=== PATIENT | female | born 1955 | race Caucasian/White ===

== ENCOUNTER 2024-05-04 10:24 | Outpatient (AMB) | payer MEDICARE, SELFPAY ==
[2024-05-04 10:31] VITALS: PULSE 81; O2SAT 95; BMI 30.8
--- NOTE | 2024-05-04 10:31 | MHC.OFFVIS ---
Vital Signs 05/04/24 10:31 Height 5 ft 3 in Weight 174 lb BMI 30.8 Pulse 81 Pulse Source Pulse Oximeter Pulse Oximetry (%) 95 Oxygen Delivery Method Room Air Intake Visit Reasons: Sleep apnea Senior Health Consultant Required: No Allergies lisinopril Adverse Reaction (Severe, Verified 05/04/24 10:33) Cough HPI Comments Details: Patient is here for pulmonary evaluation. The patient is a 69 year woman with known history of obstructive sleep apnea. The patient also has a history cardiovascular disease with hypertension and hyperlipidemia. Back in 2014 she was having significant snoring and apneic episodes ever documented by her family. She had an elevated [place] score. The patient did have a sleep study back at that time back in 2014 which demonstrated an AHI of 11 nodes an hour. In addition to that she had significant hypoxia down to 61% spending more than 10 minutes below 88%. Patient started on CPAP at that time. CPAP therapy has been affecting beneficial for many years. It did improve her daytime drowsiness. Overall she has been doing well with therapy. She does use a fullface mask. She gets supplies from [employer]. Her machine is no longer working correctly. Is making noise. It is definitely older than 5 years. She did bring it in and I did evaluated. The average pressure varies between 12-15 cm. The noise is coming from the motor and is therefore not working. Based on cardiovascular risk factors and history of hypertensive urgency the patient needs to have replacement machine RAIMUNDO. On exam she does have a mid systolic murmur about a 1-2/6 best heard at the right sternal border. She did have an echocardiogram at [facility] back in the winter of 2022. We did look at it together. Seems like she has some calcifications of the aortic valve with difficult to visualize the valve in addition to that some mild trace valvular disease . But likely is more of an aortic valve murmur. Will go ahead and start her on a new CPAP based on the fact that she had significant hypoxia during her sleep study previously will go ahead and order an overnight oximetry once she has tablets with the new machine. If the patient has evidence of any persistent hypoxia she will need another titration study. [facility] Medical History (Updated 05/04/24 @ 22:38 by Edinson You MD) Murmur WHIT (obstructive sleep apnea) Social History (Updated 05/04/24 @ 10:34 by RISSA Kaufman) Patient Tobacco Use Status: Never used Tobacco Review of Systems Const Reports snoring Eyes Reports no additional complaints ENT Denies nasal congestion Card Denies chest pain and Denies dyspnea on exertion Resp Denies cough, Denies dyspnea on exertion, Reports snoring and Denies wheezing GI Reports no additional complaints Musc Reports no additional complaints Skin/Breast Denies rash Delfino/Lymph Denies lymphadenopathy Aller/Immun Denies wheezing Physical Exam Vital Signs: Last Vital Signs Pulse 81 05/04/24 10:31 Pulse Ox 95 05/04/24 10:31 Oxygen Delivery Method Room Air 05/04/24 10:31 BMI result Body Mass Index 30.8 Const General: comfortable HEENT Head: Yes normocephalic Neck Neck: Yes supple Chest Chest palpation & inspection: normal inspection of the chest Resp Effort & Inspection: normal respiratory effort Auscultation: clear to auscultation bilaterally Cardio Heart sounds: S1 normal heart sound present, S2 normal heart sound present and Murmur heart sound present systolic mid, II/, at the base and at the right sternal border GI Palpation (GI): Soft to palpation Skin General skin exam: no rashes or lesions noted Extrem General: Yes no clubbing, cyanosis or edema Assessment & Plan Assessment & Plan (1) WHIT (obstructive sleep apnea): Comment: mild to moderate with significant hypoxia, cardiovascular risk factors Code(s): G47.33 - Obstructive sleep apnea (adult) (pediatric) Category: Medical (2) Murmur: Comment: ECHO in 2022 with minimal valvular disease, although, Aortic valve not well visualized Code(s): R01.1 - Cardiac murmur, unspecified Category: Medical Plan Her current nebulizer is broken beyond reoair. Needs a replacement APAP at this time Overnight oximetry once set up with her new APAP consider repeating ECHO in the future F/U 3-4 months Coding Level of Care Code New Pt Level 4 (83810) Diagnoses WHIT (obstructive sleep apnea) G47.33 Murmur R01.1 Time Spent (min) 40
== END 2024-05-04 11:07 | disposition home or self-care (01) ==
PROVIDERS: PCP Internal Medicine; Visit Provider Hospitalist
DX: G47.33 Obstructive sleep apnea (adult) (pediatric) (principal); R01.1 Cardiac murmur, unspecified
CPT/HCPCS: 99204

== ENCOUNTER → 2024-05-04 10:24 | Outpatient (BNVA) | payer MEDICARE, SELFPAY | PROVIDERS: PCP Internal Medicine; Visit Provider Hospitalist | DX: G47.33 Obstructive sleep apnea (adult) (pediatric) (principal); R01.1 Cardiac murmur, unspecified | CPT/HCPCS: 99202 ==

== ENCOUNTER 2024-08-10 10:10 | Outpatient (AMB) | payer MEDICARE, SELFPAY ==
--- NOTE | 2024-08-10 10:16 | A.OFFVIS_ITS ---
Vital Signs 08/10/24 10:17 Height 5 ft 3 in Weight 172 lb BMI 30.5 BP 124/70 Blood Pressure Location Lt brachial Position Sitting Pulse 69 Pulse Source Pulse Oximeter Pulse Oximetry (%) 98 Oxygen Delivery Method Room Air Intake Visit Reasons: Sleep apnea Director Of Convention Services Required: No Allergies lisinopril Adverse Reaction (Severe, Verified 08/10/24 10:19) Cough HPI Comments Details: The patient is a 69 year woman with known history of obstructive sleep apnea. The patient also has a history cardiovascular disease with hypertension and hyperlipidemia. Back in 2014 she was having significant snoring and apneic episodes ever documented by her family. She had an elevated [place] score. The patient did have a sleep study back at that time back in 2014 which demonstrated an AHI of 11 nodes an hour. In addition to that she had significant hypoxia down to 61% spending more than 10 minutes below 88%. Patient started on CPAP at that time. CPAP therapy has been affecting beneficial for many years. It did improve her daytime drowsiness. Overall she has been doing well with therapy. She does use a fullface mask. She gets supplies from [employer]. Her machine is no longer working correctly. Is making noise. It is definitely older than 5 years. She did bring it in and I did evaluated. The average pressure varies between 12-15 cm. The noise is coming from the motor and is therefore not working. Based on cardiovascular risk factors and history of hypertensive urgency the patient needs to have replacement machine RAIMUNDO. On exam she does have a mid systolic murmur about a 1-2/6 best heard at the right sternal border. She did have an echocardiogram at [facility] back in the winter of 2022. We did look at it together. Seems like she has some calcifications of the aortic valve with difficult to visualize the valve in addition to that some mild trace valvular disease . But likely is more of an aortic valve murmur. Will go ahead and start her on a new CPAP based on the fact that she had significant hypoxia during her sleep study previously will go ahead and order an overnight oximetry once she has tablets with the new machine. If the patient has evidence of any persistent hypoxia she will need another titration study. 08/10/2024 the patient is here for pulmonary follow-up visit. Overall the patient has been doing well. She did get her placement APAP. She has not AirSense 11. She did bring it in. She is tolerating it well she is using more than 4 hours a night. The CPAP therapy has been affecting beneficial. the only issue is that she is complaining of a dry mouth and also that the water is completely done prior to her finishing completing her night sleep. The patient did been was able to downloaded. Her AHI is down to 0.8 which is reassuring. Still though her average pressure around 17. this is closely her maximum pressure set up the machine currently set APAP 6 to 18. will go ahead and adjust the PAP therapy by 2 increasing it to 8-20. She is using a fullface mask. I do believe that she will do better with a F20 medium mask. I will request that from her [employer]. In the meantime her humidity set up at 5 in temperature 84 as she is trying to get more humidity from machine. However, she is that currently the water chamber can not maintain the amount of humidification and is running out prior to her completing her night. Therefore I decrease the humidity from 5-3 and brought down the temperature from 84-82. Will try to continue to work with those numbers to try to get her to the best place. I did change the humidity to automatic at this time. From a respiratory status doing well. Now that she is tolerating therapy will request an overnight oximetry to make sure that her oxygenation is better at this time. If the patient has any issues she will call for an earlier assessment otherwise follow-up in a years time. [facility] Medical History (Updated 08/10/24 @ 20:30 by Edinson You MD) Murmur WHIT (obstructive sleep apnea) Social History (Updated 05/04/24 @ 10:34 by RISSA Kaufman) Patient Tobacco Use Status: Never used Tobacco Review of Systems Const Denies snoring Eyes Reports no additional complaints ENT Reports dry mouth and Denies nasal congestion Card Denies chest pain and Denies dyspnea on exertion Resp Denies cough, Denies dyspnea on exertion, Denies snoring and Denies wheezing GI Reports no additional complaints Musc Reports no additional complaints Skin/Breast Denies rash Delfino/Lymph Denies lymphadenopathy Aller/Immun Denies wheezing Physical Exam Vital Signs: Last Vital Signs Pulse 69 08/10/24 10:17 BP 124/70 08/10/24 10:17 Pulse Ox 98 08/10/24 10:17 Oxygen Delivery Method Room Air 08/10/24 10:17 BMI result Body Mass Index 30.5 Const General: comfortable HEENT Head: Yes normocephalic Neck Neck: Yes supple Chest Chest palpation & inspection: normal inspection of the chest Resp Effort & Inspection: normal respiratory effort Auscultation: clear to auscultation bilaterally Cardio Heart sounds: S1 normal heart sound present, S2 normal heart sound present and Murmur heart sound present systolic mid, II/, at the base and at the right sternal border GI Palpation (GI): Soft to palpation Skin General skin exam: no rashes or lesions noted Extrem General: Yes no clubbing, cyanosis or edema Assessment & Plan Assessment & Plan (1) WHIT (obstructive sleep apnea): Comment: mild to moderate with significant hypoxia, cardiovascular risk factors Code(s): G47.33 - Obstructive sleep apnea (adult) (pediatric) Category: Medical (2) Murmur: Comment: ECHO in 2022 with minimal valvular disease, although, Aortic valve not well visualized Code(s): R01.1 - Cardiac murmur, unspecified Category: Medical Plan continue APAP, adjust to 10-20 with ramp 6, adjusted humidity Overnight oximetry on APAP, RA F/U 8-12 months Orders: Orders Overnight Pulse Oximetry Today G47.34 - Idiopathic sleep related nonobstructive alveolar hypoventilation Coding Level of Care Code Est Pt Level 4 (57104) Diagnoses WHIT (obstructive sleep apnea) G47.33 Murmur R01.1 Time Spent (min) 18
[2024-08-10 10:17] VITALS: BP 124/70; PULSE 69; O2SAT 98; BMI 30.5
== END 2024-08-10 10:59 | disposition home or self-care (01) ==
PROVIDERS: PCP Internal Medicine; Visit Provider Hospitalist
DX: G47.33 Obstructive sleep apnea (adult) (pediatric) (principal); R01.1 Cardiac murmur, unspecified
CPT/HCPCS: 99214

== ENCOUNTER → 2024-08-10 10:10 | Outpatient (BNVA) | payer MEDICARE, SELFPAY | PROVIDERS: PCP Internal Medicine; Visit Provider Hospitalist | DX: G47.33 Obstructive sleep apnea (adult) (pediatric) (principal); G47.34 Idiopathic sleep related nonobstructive alveolar hypoventilation; R01.1 Cardiac murmur, unspecified; Z99.89 Dependence on other enabling machines and devices | CPT/HCPCS: 99212 ==

== ENCOUNTER 2025-08-05 09:54 | Outpatient (AMB) | payer MEDICARE, SELFPAY ==
[2025-08-05 09:56] VITALS: BP 140/68; PULSE 78; O2SAT 96; BMI 30.7
--- NOTE | 2025-08-05 09:56 | A.OFFVIS_ITS ---
Vital Signs 08/05/25 09:56 Height 5 ft 3 in Weight 173 lb 1.006 oz BMI 30.7 BP 140/68 H Blood Pressure Location Lt brachial Position Sitting Pulse 78 Pulse Source Pulse Oximeter Pulse Oximetry (%) 96 Oxygen Delivery Method Room Air Intake Visit Reasons: Sleep apnea Compensation Coordinator Required: No Accompanied by: Spouse Allergies lovastatin Allergy (Intermediate, Verified 08/05/25 10:00) abn lab lisinopril Adverse Reaction (Severe, Verified 08/10/24 10:19) Cough HPI Comments Details: The patient is a 70 year woman with known history of obstructive sleep apnea. The patient also has a history cardiovascular disease with hypertension and hyperlipidemia. Back in 2014 she was having significant snoring and apneic episodes ever documented by her family. She had an elevated [place] score. The patient did have a sleep study back at that time back in 2014 which demonstrated an AHI of 11 nodes an hour. In addition to that she had significant hypoxia down to 61% spending more than 10 minutes below 88%. Patient started on CPAP at that time. CPAP therapy has been affecting beneficial for many years. It did improve her daytime drowsiness. Overall she has been doing well with therapy. She does use a fullface mask. She gets supplies from [employer]. Her m [employer] is no longer working correctly. Is making noise. It is definitely older than 5 years. She did bring it in and I did evaluated. The average pressure varies between 12-15 cm. The noise is coming from the motor and is therefore not working. Based on cardiovascular risk factors and history of hypertensive urgency the patient needs to have replacement machine RAIMUNDO. On exam she does have a mid systolic murmur about a 1-2/6 best heard at the right sternal border. She did have an echocardiogram at [facility] back in the winter of 2022. We did look at it together. Seems like she has some calcifications of the aortic valve with difficult to visualize the valve in addition to that some mild trace valvular disease . But likely is more of an aortic valve murmur. Will go ahead and start her on a new CPAP based on the fact that she had significant hypoxia during her sleep study previously will go ahead and order an overnight oximetry once she has tablets with the new machine. If the patient has evidence of any persistent hypoxia she will need another titration study. 08/10/2024 the patient is here for pulmonary follow-up visit. Overall the patient has been doing well. She did get her placement APAP. She has not AirSense 11. She did bring it in. She is tolerating it well she is using more than 4 hours a night. The CPAP therapy has been affecting beneficial. the only issue is that she is complaining of a dry mouth and also that the water is completely done prior to her finishing completing her night sleep. The patient did been was able to downloaded. Her AHI is down to 0.8 which is reassuring. Still though her average pressure around 17. this is closely her maximum pressure set up the machine currently set APAP 6 to 18. will go ahead and adjust the PAP therapy by 2 increasing it to 8-20. She is using a fullface mask. I do believe that she will do better with a F20 medium mask. I will request that from her [employer]. In the meantime her humidity set up at 5 in temperature 84 as she is trying to get more humidity from machine. However, she is that currently the water chamber can not maintain the amount of humidification and is running out prior to her completing her night. Therefore I decrease the humidity from 5-3 and brought down the temperature from 84-82. Will try to continue to work with those numbers to try to get her to the best place. I did change the humidity to automatic at this time. From a respiratory status doing well. Now that she is tolerating therapy will request an overnight oximetry to make sure that her oxygenation is better at this time. If the patient has any issues she will call for an earlier assessment otherwise follow-up in a years time. 08/05/2025 the patient is here for pulmonary follow-up visit. Overall the patient has been doing well from a CPAP standpoint. She has been using her CPAP every night and the CPAP therapy has been affecting beneficial. Denies any issues with her mask. Although she does have some air leakage at times. She will continue with the current regimen. The patient also complains of cough. She also has some raspiness of the voice and some chest congestion at times. Intermittently in about [id number] severity. She recently did undergo a CT scan of the chest to assess her coronary arteries. 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 She did have a formal CT scan of the chest back in October or September 2024 which I also personally reviewed. There she also had the reticular changes mainly in the subpleural area without any evidence of ground-glass opacities in primarily the left lung more than the right in no real significant bronchiectatic changes there. 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 The patient will also undergo blood work to assess her for the interstitial lung disease in the bronchiectasis. She also needs pulmonary function studies which we also request. For now though she is doing well then she will continue with her current therapy. If she needs any additional inhaler therapy she can always call for further recommendations. [facility] Medical History (Updated 08/07/25 @ 19:31 by Edinson You MD) Bronchiectasis Aortic ectasia Pulmonary fibrosis Murmur WHIT (obstructive sleep apnea) Social History Patient Tobacco Use Status: Never used Tobacco Review of Systems Const Denies snoring Eyes Reports no additional complaints ENT Reports dry mouth and Denies nasal congestion Card Denies chest pain and Denies dyspnea on exertion Resp Reports chest congestion, Reports cough, Denies dyspnea on exertion, Denies snoring and Denies wheezing GI Reports no additional complaints Musc Reports no additional complaints Skin/Breast Denies rash Delfino/Lymph Denies lymphadenopathy Aller/Immun Denies wheezing Physical Exam Vital Signs: Last Vital Signs Pulse 78 08/05/25 09:56 BP 140/68 H 08/05/25 09:56 Pulse Ox 96 08/05/25 09:56 Oxygen Delivery Method Room Air 08/05/25 09:56 BMI result Body Mass Index 30.7 Const General: comfortable HEENT Head: Yes normocephalic Neck Neck: Yes supple Chest Chest palpation & inspection: normal inspection of the chest Resp Effort & Inspection: normal respiratory effort Auscultation: clear to auscultation bilaterally Cardio Heart sounds: S1 normal heart sound present, S2 normal heart sound present and Murmur heart sound present systolic mid, II/, at the base and at the right sternal border GI Palpation (GI): Soft to palpation Skin General skin exam: no rashes or lesions noted Extrem General: Yes no clubbing, cyanosis or edema Results Reviewed Results Reviewed: personally reviewed CT chest [address] coronary arteries 2024 with reticular changes Left hemithorax and some bronchiectasis Assessment & Plan Assessment & Plan (1) WHIT (obstructive sleep apnea): Comment: mild to moderate with significant hypoxia, cardiovascular risk factors Code(s): G47.33 - Obstructive sleep apnea (adult) (pediatric) Category: Medical (2) Murmur: Comment: ECHO in 2022 with minimal valvular disease, although, Aortic valve not well visualized Code(s): R01.1 - Cardiac murmur, unspecified Category: Medical (3) Pulmonary fibrosis: Code(s): J84.10 - Pulmonary fibrosis, unspecified Category: Medical (4) Aortic ectasia: Code(s): I77.819 - Aortic ectasia, unspecified site Category: Medical (5) Bronchiectasis: Code(s): J47.9 - Bronchiectasis, uncomplicated Category: Medical Qualifiers: Bronchiectasis type: uncomplicated Qualified Code(s): J47.9 - Bronchiectasis, uncomplicated Plan continue APAP, adjust to 10-20 with ramp 6, adjusted humidity bloodwork CT chest with IV [place] [facility] [place]s consider MARVIN as needed F/U 2-3 months Orders: Orders Immunoglobulin E 08/05/25 J47.9 - Bronchiectasis, uncomplicated, J84.10 - Pulmonary fibrosis, unspecified Erythrocyte Sedimentation Rate 08/05/25 J47.9 - Bronchiectasis, uncomplicated, J84.10 - Pulmonary fibrosis, unspecified CT chest w IV con 08/05/25 I77.819 - Aortic ectasia, unspecified site, J47.9 - Bronchiectasis, uncomplicated, J84.10 - Pulmonary fibrosis, unspecified Basic Metabolic Panel 08/05/25 J84.10 - Pulmonary fibrosis, unspecified PFT pulmonary function test 08/05/25 J47.9 - Bronchiectasis, uncomplicated, J84.10 - Pulmonary fibrosis, unspecified Complete Blood Count Auto Diff 08/05/25 J47.9 - Bronchiectasis, uncomplicated, J84.10 - Pulmonary fibrosis, unspecified Cyclic Citrullinated Peptide 08/05/25 J47.9 - Bronchiectasis, uncomplicated, J84.10 - Pulmonary fibrosis, unspecified [place] Reflex Titer and Pattern 09/12/25 J47.9 - Bronchiectasis, uncomplicated, J84.10 - Pulmonary fibrosis, unspecified Immunoglobulins,IgG IgA IgM 08/05/25 J47.9 - Bronchiectasis, uncomplicated, J84.10 - Pulmonary fibrosis, unspecified Hypersensitive Pneumonitis Prf 08/05/25 J47.9 - Bronchiectasis, uncomplicated, J84.10 - Pulmonary fibrosis, unspecified, R91.8 - Other nonspecific abnormal finding of lung field Coding Level of Care Code Est Pt Level 5 (21845) Complex EM visit Add On G2211 Diagnoses WHIT (obstructive sleep apnea) G47.33 Murmur R01.1 Pulmonary fibrosis J84.10 Aortic ectasia I77.819 Bronchiectasis without complication J47.9 Bronchiectasis type: uncomplicated Time Spent (min) 50
--- OUTSIDE RECORDS SUMMARY | 2025-08-05 11:12 | XMS_ITS | Clinical Summary ---
Author Organization [facility] Address [address] [facility] [place] [address] Care Team Providers Care Commodity Buyer Name Role Phone Community, Pcp Primary Care Provider Unavailabl e Allergies Active Allergy Reactions Severity Noted Date Comments Lisinopril Cough 08/31/2010 Lovastatin OTHER 02/16/2018 Elevated LFT Medications Medication Sig Dispensed Refills Start Date End Date Status Multiple Vitamins-Minerals (SENIOR MULTIVITAMIN PLUS OR) Take 1 Tab by mouth. 0 Active cetirizine (ZYRTEC ALLERGY) 10 MG tablet Take 10 mg by mouth daily. 0 Active Glucosamine-Chondro it-Vit C-Mn (GLUCOSAMINE CHONDR 1500 COMPLX OR) Take 1,500 mg by mouth 2 times daily. 0 Active Calcium Carbonate-Vitamin D (CALCIUM + D OR) Take 1 tablet by mouth 2 times daily. 0 Active Blood Glucose Calibration (OT ULTRA/FASTTK CNTRL SOLN) Solution 1 Drop by In Vitro route See Admin Instructions. Use with every new bottle of strips 2 Each 4 07/16/2016 Active ONETOUCH VERIO strip Apply 1 Strip topically 2 times daily as needed for Other (maintain blood glucose). 200 Strip 1 03/12/2017 Active ONETOUCH DELICA LANCETS FINE Misc Apply 1 Stick topically 2 times daily as needed for Other (maintain blood glucose). 200 Each 1 03/12/2017 Active Blood Glucose Monitoring Suppl (ONETOUCH VERIO IQ SYSTEM) W/DEVICE Kit Use daily prn 1 Kit 0 02/08/2019 Active Probiotic Product (PROBIOTIC DAILY) Cap Take 1 Tab by mouth daily. 0 Active pantoprazole (PROTONIX) 20 MG tablet Take 1 Tab by mouth daily. 90 Tab 1 06/23/2020 Active fluticasone 50 MCG/ACT nasal spray USE 1 SPRAY IN EACH NOSTRILTWICE DAILY 3 Bottle 3 10/03/2020 Active aspirin 81 MG chewable tablet Take 1 tablet by mouth daily. 90 tablet 1 01/11/2022 Active metformin (GLUCOPHAGE) 500 MG tablet Take 2 tablets by mouth twice daily with meals 360 Tablet 0 05/13/2022 Active losartan (COZAAR) 50 MG tablet Take 1 Tablet by mouth daily. 90 Tablet 0 05/13/2022 Active simvastatin (ZOCOR) 20 MG tablet Take 1 Tablet by mouth at bedtime. 90 Tablet 0 05/13/2022 Active Active Problems Patient Care Coordination No te Formatting of this note is d ifferent from the original. Checking Your Blood Sugars Please check your blood sugars every day. Please check your sugars at the following times of day: before breakfast Your Blood Sugar Goals Pre Meal: 90-130 2 hours after meals: 110-160 Bedtime: 110-150 Use the Results Bring your glucometer to every appointment Write your fingerstick blood sugars down on a log sheet or record book. Bring them to your appointment Look for patterns in the numbers. The results help you and your provider make decisions about your diabetes treatment plan. Your Results and your Goals Your Result / Date of Completion Your Goal / How Often to Assess Component Value Date HGBA1C 7.3 05/21/2016 Less than 7%--- 2-4 times per year BP Readings from Last 1 Encounters: 05/22/16 142/78 Less than 130/80--- once per year Component Value Date LDL 153 05/21/2016 LDL less than 100--- once per year Component Value Date MALBUR 9.5 12/07/2015 Less than 30--- once per year Wt Readings from Last 1 Encounters: 05/22/16 181 lb (82.101 kg) Your goal weight by next visit: 170 lbs --- reassess 2-4 times a year Health Maintenance Due Topic Date Due Pneumovax For High Risk Patients (1) 1974 Diabetes: Annual Foot Exam 08/20/2014 Diabetes: Annual Care Plan 08/20/2014 Adult Immunization: Zostavax For Patients Over 60 2016 Your Action Plan Check blood glucose as directed and write down all results. Check feet for sores every day Contact me if you experience any barriers to care such as inability to purchase your medication, difficulty getting to your appointments or difficulty understanding your care plan Please get your yearly flu shot When to Call your Healthcare Provider If your blood sugar falls below 70 and you do not know why or you become unconscious If you are sick and unable to take liquids because or nausea or vomiting If you have a fever over 101 If your blood sugar is 300 or higher on greater than 3 separate occasions during the same week If you are just unsure what to do Educational Resources [place] Diabetes Association (www.diabetes.org) Centers for Disease Control and Prevention (www.cdc.gov/diabetes) This care plan was created in collaboration with Vi Zuniga Md on 05/22/2016 Problem Noted Date Shoulder impingement syndrome, left 01/23 Elevated liver enzymes 12/07/2015 Sleep apnea 04/26/2015 Overview: CPAP Allergic rhinitis 11/08/2011 HTN (hypertension), benign 02/16/2010 Pure hypercholesterolemia 04/28/2006 Diabetes mellitus type 2, uncontrolled 0 04/28/2006 Immunizations Name Administration Dates Next Due COVID-19 (Moderna) PT Reported 10/19/2021,2020,12/13/2020 Influenza (> 6 Months) 08/20/2018,2016,08/27/2016,09/15,08/30/2014,09/10/2013,10/06/2012 Qvqkd-Uxxkv-Ctzwdibh + 05/17/2010 PPD Negative Response(Internal) 10/31/2015 PPD-RBMG 03/03/2012,01/23/2010 Pneumoccoccal(Adult) Polysac charide PPSV23 02/08/2019 TD (STATE SUPPLIED FOR ADULT S AND CHILDREN) 03/05/2022,04/28/2006 Tdap 01/23/2012 Family History Medical History Relation Name Comments Diabetes Brother Hypertension Brother Diabetes Father Diabetes Mother Hypertension Mother CA Breast Negative Hx Relation Name Status Comments Brother Alive htn, Father CHF, DM Mother Alive HTN, DM Social History Tobacco Use Types Packs/Day Years Used Date Smoking Tobacco: Never Smokeless Tobacco: Never Alcohol Use Standard Drinks/Week Comments Yes 0 (1 standard drink = 0.6 oz pur e alcohol) rare Sex Assigned at Date Recorded Not on file Job Start Date Occupation Industry Not on file Not on file Not on file Last Filed Vital Signs Vital Sign Reading Time Taken Comments Blood Pressure 150/84 12/04/2021 8:06 AM EST Pulse 89 12/04/2021 8:06 AM EST Temperature 37.3 C (99.1 F) 10/18/2019 9:51 AM EST Respiratory Rate 14 12/04/2021 8:06 AM EST Oxygen Saturation 95% 09/03/2017 9:43 AM EDT Inhaled Oxygen Concentration - - Weight 77.8 kg (171 lb 9.6 oz) 12/04/2021 8:06 A M EST Height 162.6 cm (5' 4 ) 10/18/2019 9:51 AM EST Body Mass Index 29.46 10/18/2019 9:51 AM EST Plan of Treatment Health Maintenance Due Date Last Done Comments DEPRESSION SCREEN 1968 SHINGLES VACCINE (1 of 2) 2006 DIABETES: ANNUAL FOOT EXAM 10/18/202010/18, 06/21/2019 (Completed), 06/21/2019, Additional history exists DIABETES: ANNUAL EYE EXAM 11/03/20202018, 10/22/2018 (External Completion of test per patient (Patient reports normal results)), 01/24/2016 (External Completion of test per patient (Patient reports normal results)), Additional history exists BONE DENSITY SCREENING 2021 2, 07/11/2009, 08/25/2007, Additional history exists FALL RISK ASSESSMENT 2021 PNEUMOCOCCAL VACCINE (2 - PCV) 2021 02/08/2019 DIABETES: BLOOD SUGAR CONTRO L TEST (HGBA1C) 04/16/2022 01/17/2022, 05/19/2020, 10/14/2019, Additional history exists COLON CANCER SCREENING 09/03/2022 09/03/2017, 2011 DIABETES/HEART DISEASE: MANDI AL CHOLESTEROL (LDL) 01/17/2023 01/17/2022, 05/19/2020, 11/12/2019, Additional history exists DIABETES: ANNUAL URINE PROTE IN TEST (MICROALBUMIN) 01/17/2023 01/17/2022, 02/04/2019, 06/13/2017, Additional history exists MAMMOGRAM 05/28/2023 05/28/2022, 04/25, 01/28/2019, Additional history exists BMI CHECK/ADVISE 11/24/2024 12/04/2021, 09/2022, 05/23/2020, Additional history exists Covid-19 Vaccine (4 - 2022-2 4 season) 2025 10/19/2021, 01/10/2021, 12/13/2020 INFLUENZA (#1) 2025 08/20/2018, 1003/2017, 08/27/2016, Additional history exists DTAP/TDAP/TD (3 - Td or Tdap) 03/05/2032, 01/23/2012, 04/28/2006 HEPATITIS C SCREENING Completed 04/12/2014 Care Teams Commodity Buyer Relationship Specialty Start Date End Date Community, Pcp PCP - General Internal Medicine 10/11/22
--- OUTSIDE RECORDS SUMMARY | 2025-08-05 11:12 | XMS_ITS | Encounter Summary ---
Author Organization [facility] Address [address] [place] [address] Care Team Providers Care Music Store Manager Name Role Phone Timothy Young MD Primary Care Provider Ashley Lewis, Pcp Primary Care Provider Denis archer Encounter Details Date Type Department Care Team Description 05/29/2021 Orders Only Pediatrics [facility] [address] [place] [address] Jm Early MD URI, acute (Primary Dx) Social History Tobacco Use Types Packs/Day Years Used Date Smoking Tobacco: Never Smokeless Tobacco: Never Alcohol Use Standard Drinks/Week Comments Yes 0 (1 standard drink = 0.6 oz pur e alcohol) rare Sex Assigned at Date Recorded Not on file Job Start Date Occupation Industry Not on file Not on file Not on file documented as of this encounter Plan of Treatment Not on file documented as of this encounter Results * COVID-19 TESTING (05/29/2021 1:07 PM EDT) Pathologist [facility] SARS-COV-2 RNA, QUALRT-PCR NOT DETECTED NOT DETECT 05/30/2021 7:47 PM EDT [facility] Comment: Disclaimer: The manner in which this information is used to guide patient care is the responsibility of the healthcare provider. Testing was performed using the [employer] M2000 SARS-CoV-2 test. This test has been authorized by FDA under an Emergency Use Authorization (EUA). This test is only authorized for the duration of time the declaration that circumstances exist justifying the authorization of the emergency use of in vitro diagnostic tests for detection of SARS-CoV-2 virus and/or diagnosis of COVID-19 infection under section 564(b)(1) of the Act, 21 U.S.C. 360bbb-3(b)(1), unless the authorization is terminated or revoked sooner. 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
--- OUTSIDE RECORDS SUMMARY | 2025-08-05 11:12 | XMS_ITS | Encounter Summary ---
Author Organization [facility] Address [address] [place] [address] Care Team Providers Care Structural Steel Engineer Name Role Phone Timothy Young MD Primary Care Provider Ashley ferrell [facility], Pcp Primary Care Provider Denis archer Encounter Details Date Type Department Care Team Description 05/20/2022 Business Doc Medical Records [address] [place] [id number] Abstract, Provider Social History Tobacco Use Types Packs/Day Years Used Date Smoking Tobacco: Never Smokeless Tobacco: Never Alcohol Use Standard Drinks/Week Comments Yes 0 (1 standard drink = 0.6 oz pur e alcohol) rare Sex Assigned at Date Recorded Not on file Job Start Date Occupation Industry Not on file Not on file Not on file COVID-19 Exposure Response Date Recorded In the last 10 days, have yo u been in contact with someone who was confirmed or suspected to have Coronavirus/COVID-19? No / Unsure 05/15/2022 8:04 AM EDT documented as of this encounter Plan of Treatment Not on file documented as of this encounter Visit Diagnoses Not on filedocumented in this encounter Care Teams Structural Steel Engineer Relationship Specialty Start Date End Date Timothy Young MD PCP - General Internal Medicine 03/06/16 10/10/22 [facility], Pcp PCP - General Internal Medicine 10/11/22 documented as of this encounter
--- OUTSIDE RECORDS SUMMARY | 2025-08-05 11:12 | XMS_ITS | Encounter Summary ---
Author Organization [facility] Address [address] [place] [address] Care Team Providers Care Janitor Head Name Role Phone Michael Hernández MD Primary Care Provider Breanna Queen MD Primary Care Provider Timothy Kuo MD Primary Care Provider Ashley [facility], Pcp Primary Care Provider Denis archer Reason for Visit * Reason Onset Date Comments TEST RESULTS 11/07/2014 Encounter Details Date Type Department Care Team Description 11/07/2014 Pt. Non Urgent Medical Question Adult Medicine B - [address] [address] Michael Hernández MD Pure hypercholesterolemia (Primary Dx) Social History Tobacco Use Types Packs/Day Years Used Date Smoking Tobacco: Never Smokeless Tobacco: Never Alcohol Use Standard Drinks/Week Comments Yes 0 (1 standard drink = 0.6 oz pur e alcohol) rare Sex Assigned at Date Recorded Not on file Job Start Date Occupation Industry Not on file Not on file Not on file documented as of this encounter Progress Notes * Makenzie Johnson L.P.N. - 11/07/2014 1:46 PM ESTFrom: Nory Zuniga Md To: Michael Hernández MD Sent: 11/07/2014 1:39 PM EST Subject: test results I noticed that I did not have liver function tests done. Should this be done? Also, can I go back on 40mg of lovastatin instead of 60 to hopefully reduce my chance of side effects? Thanks. Miesha documented in this encounter Plan of Treatment Scheduled Orders Name Type Priority Associated Diagnoses Orde r Schedule COMPREHENSIVE METABOLIC PANEL Lab Routine Pure hypercholesterolemia Expected: 11/07/2014, Expires: 11/07/2015 documented as of this encounter Visit Diagnoses Diagnosis Pure hypercholesterolemia- Primary documented in this encounter Care Teams Janitor Head Relationship Specialty Start Date End Date iMchael Hernández MD PCP - General Internal Medicine 11/08/11 09/25/15 Breanna Nogueira MD PCP - General Internal Medicine 09/26/15 03/05/16 Timothy Young MD PCP - General Internal Medicine 03/06/16 10/10/22 [facility], Pcp PCP - General Internal Medicine 10/11/22 documented as of this encounter
--- OUTSIDE RECORDS SUMMARY | 2025-08-05 11:12 | XMS_ITS | Encounter Summary ---
Author Organization [facility] Address [address] [place] [address] Care Team Providers Care Dust Collector Name Role Phone Timothy Young MD Primary Care Provider Ashley ferrell [facility], Pcp Primary Care Provider Denis archer Encounter Details Date Type Department Care Team Description 12/02/2018 Pt. Non Urgent Medic al Question Adult Medicine [address] [address] Timothy Young MD Social History Tobacco Use Types Packs/Day Years Used Date Smoking Tobacco: Never Smokeless Tobacco: Never Alcohol Use Standard Drinks/Week Comments Yes 0 (1 standard drink = 0.6 oz pur e alcohol) rare Sex Assigned at Date Recorded Not on file Job Start Date Occupation Industry Not on file Not on file Not on file documented as of this encounter Progress Notes * Brittany Botello M.A. - 12/02/2018 9:25 AM ESTFrom: Nory Zuniga Md To: Timothy Young MD Sent: 12/02/2018 8:56 AM EST Subject: previous message This message is in regards to the message I just left about my renewal. When I looked at my [employer] account, I saw that [employer] had automatically asked for the renewal yesterday. I believe that renewal was accidentally sent to [employer] instead of [facility] for a 90 day supply of my Januvia and metformin. Please correct these renewals and send to [facility]. Thank you. Miesha documented in this encounter Plan of Treatment Not on file documented as of this encounter Visit Diagnoses Not on filedocumented in this encounter Care Teams Dust Collector Relationship Specialty Start Date End Date Timothy Young MD PCP - General Internal Medicine 03/06/16 10/10/22 [facility] PCP - General Internal Medicine 10/11/22 documented as of this encounter
--- OUTSIDE RECORDS SUMMARY | 2025-08-05 11:12 | XMS_ITS | Encounter Summary ---
Author Organization [facility] Address [address] [place] [address] Care Team Providers Care Animal Physiologist Name Role Phone Timothy Young MD Primary Care Provider [facility] Primary Care Provider Unavailabl e Reason for Visit * Reason Comments E-prescribe Rx Request Encounter Details Date Type Department Care Team Description 04/30/2020 Refill Adult Medicine [address] [address] Timothy Young MD E-prescribe Rx Request Social History Tobacco Use Types Packs/Day Years Used Date Smoking Tobacco: Never Smokeless Tobacco: Never Alcohol Use Standard Drinks/Week Comments Yes 0 (1 standard drink = 0.6 oz pur e alcohol) rare Sex Assigned at Date Recorded Not on file Job Start Date Occupation Industry Not on file Not on file Not on file documented as of this encounter Miscellaneous Notes * Telephone Encounter - Santa Hobson M.A. - 05/01/2020 1:55 PM EDT Lab Results Component Value Date HGBA1C 6.1 10/14/2019 MALBUR 6.1 02/04/2019 MALBCR < 7.7 02/04/2019 CHOL 160 11/12/2019 LDL 66 11/12/2019 HDL 70 11/12/2019 TRIG 121 11/12/2019 GLU 97 10/14/2019 CREAT 0.76 10/14/2019 * Telephone Encounter - Kamila Vazquez - 05/01/2020 9:08 AM EDT Patient would like script to be: E-PRESCRIBED/FAXED TO PHARMACY WHEN WAS THE PATIENT'S LAST APPOINTMENT IN ADULT MEDICINE? 11/17/19 WHEN WAS THE LAST TIME THE PATIENT SAW THEIR PCP? Same as above Does patient have an upcoming appointment? No-unable to reach left voicemaill to call for appointment due to refill request. Appt due (THE MEDICATION REQUESTED IS ON THE MED LIST ABOVE) All of the medications requested were on the CURRENT MEDS list Did you check the Pharmacy information above?: YES Patient wants: 90 -day supply Is this a mail order prescription request ? NO If the refill is from a FAXED refill request what is the RX # listed on the fax? N/A Patients current insurance carrier is: Payor: [employer] / Plan: POS $20 [place] [id number] / Product Type: POS [id number] documented in this encounter Plan of Treatment Not on file documented as of this encounter Visit Diagnoses Not on filedocumented in this encounter Care Teams Animal Physiologist Relationship Specialty Start Date End Date Timothy Young MD PCP - General Internal Medicine [facility]06[facility] 10/11[facility]22 documented as of this encounter
--- OUTSIDE RECORDS SUMMARY | 2025-08-05 11:12 | XMS_ITS | Encounter Summary ---
Author Organization [facility] Address [address] [place] [address] Care Team Providers Care Spud Sorter Name Role Phone Timothy Young MD Primary Care Provider Michael Lyon MD Primary Care Provider Unavail able Breanna Nogueira MD Primary Care Provider Unavaila [facility] Timothy Young MD Primary Care Provider Ashley ferrell [facility], Pcp Primary Care Provider Unavailabl e Encounter Details Date Type Department Care Team Description 08/13/2010 Release of Information Medical Records [address] [place] [id number] Abstract, Provider Social History Tobacco Use Types Packs/Day Years Used Date Smoking Tobacco: Never Alcohol Use Standard Drinks/Week Comments [...] on filedocumented in this encounter Care Teams Spud Sorter Relationship Specialty Start Date End Date Timothy Young MD PCP - General 12/25/00 11/07/11 Michael Hernández MD PCP - General Internal Medicine 11/08/11 09/25/15 Breanna Nogueira MD PCP - General Internal Medicine 09/26/15 03/05/16 Timothy Young MD PCP - General Internal Medicine 03/06/16 10/10/22 [facility], Pcp PCP - General Internal Medicine 10/11/22 documented as of this encounter
--- OUTSIDE RECORDS SUMMARY | 2025-08-05 11:12 | XMS_ITS | Encounter Summary ---
Author Organization [facility] Address [address] [place] [address] Care Team Providers Care Principal Technical Writer Name Role Phone Timothy Young MD Primary Care Provider Ashley ferrell [facility], Pcp Primary Care Provider [facility] Reason for Visit * Reason Onset Date Comments Orders Call 05/19/2020 Encounter Details Date Type Department Care Team Description 05/19/2020 Telephone Adult Medicine [address] [address] Timothy Young MD Orders Call Social History Tobacco Use Types Packs/Day Years [...] encounter Miscellaneous Notes * Telephone Encounter - Timothy Young - 05/19/2020 11:10 AM EDT They were ordered on 10/18/2019 and I can see them in the order * Telephone Encounter - Santa Hobson M.A. - 05/19/2020 9:13 AM EDT Patient contacted me stating she had labs drawn this am , no orders , lab is holding blood, please place orders documented in this encounter Plan of Treatment Not on file documented as of this encounter Visit Diagnoses Not on filedocumented in this encounter Care Teams Principal Technical Writer Relationship Specialty Start Date End Date Timothy Young MD PCP - General Internal Medicine 03/06/16 10/10/22 [facility], Pcp PCP - General Internal Medicine 10/11/22 documented as of this encounter
--- OUTSIDE RECORDS SUMMARY | 2025-08-05 11:12 | XMS_ITS | Encounter Summary ---
Author Organization [facility] Address [address] [place] [address] Care Team Providers Care Leather Toggler Name Role Phone Timothy Young MD Primary Care Provider Ashley ferrell [facility], Pcp Primary Care Provider Unavailabl e Reason for Visit * Reason Comments E-prescribe Rx Request Encounter Details Date Type Department Care Team Description 09/29/2020 Refill Medicine/Pediatrics - [address] [address] Timothy Young MD E-prescribe Rx Request Social [...] Exposure Response Date Recorded In the last month, have you been in contact with someone who was confirmed or suspected to have Coronavirus / COVID-19? No / Unsure 09/22/2020 1:14 PM EDT documented as of this encounter Miscellaneous Notes * Telephone Encounter - Coral Robbins M.A. - 10/03/2020 3:35 PM EST Lab Results Component Value Date NA 139 05/19/2020 K 4.1 05/19/2020 CO2 29 05/19/2020 CL 104 05/19/2020 BUN 16 05/19/2020 CREAT 0.71 05/19/2020 GLU 101 05/19/2020 CA 10.0 05/19/2020 GFR > 60 05/19/2020 Last appt with pcp 09/22/20 * Telephone Encounter - Samara Cam - 10/01/2020 12:05 PM EST Patient would like script to be: E-PRESCRIBED/FAXED TO PHARMACY WHEN WAS THE PATIENT'S LAST APPOINTMENT IN ADULT MEDICINE? 09/22/2020 WHEN WAS THE LAST TIME THE PATIENT SAW THEIR PCP? Same as above Does patient have an upcoming appointment? No-patient refused appointment, will call back to book appointment (THE MEDICATION REQUESTED IS ON THE MED LIST ABOVE) All of the medications requested were on the CURRENT MEDS list Did you check the Pharmacy information above?: YES Patient wants: 30 -day supply Is this a mail order prescription request ? NO If the refill is from a FAXED refill request what is the RX # listed on the fax? N/A Patients current insurance carrier is: Payor: [employer] / Plan: POS $20 [place] [id number] / Product Type: POS [id number] documented in this encounter Plan of Treatment Not on file documented as of this encounter Visit Diagnoses Not on filedocumented in this encounter Care Teams Leather Toggler Relationship Specialty Start Date End Date Timothy Young MD PCP - General Internal Medicine 03/06/16 10/10/22 [facility], Pcp PCP - General Internal Medicine 10/11/22 documented as of this encounter
--- OUTSIDE RECORDS SUMMARY | 2025-08-05 11:12 | XMS_ITS | Encounter Summary ---
Author Organization [facility] Address [address] [place] [address] Care Team Providers Care Receiving Room Clerk Name Role Phone Timothy Young MD Primary Care Provider Ashley ferrell [facility], Pcp Primary Care Provider Denis archer Encounter Details Date Type Department Care Team Description 06/24/2016 Refill Adult Medicine [address] [address] Radha Nogueira MD Social History Tobacco Use Types Packs/Day [...] encounter Miscellaneous Notes * Telephone Encounter - Victor Manuel Quiroga - 06/25/2016 7:20 AM EDTFrom: Nory Zuniga Md To: Radha Nogueira MD Sent: 06/24/2016 10:29 AM EDT Subject: Medication Renewal Request Original authorizing provider: MD Nory MONROY Md would like a refill of the following medications: pantoprazole (PROTONIX) 20 MG tablet [RADHA NOGUEIRA MD] aspirin 81 MG tablet [RADHA NOGUEIRA MD] Preferred pharmacy: [facility] Comment: Medication renewals requested in this message routed to other providers: sitagliptan (JANUVIA) 25 MG tablet [Timothy Young MD] fluticasone (FLONASE) 50 MCG/ACT nasal spray [Kriss Elaine NP] metformin (GLUCOPHAGE) 500 MG tablet [Kriss Elaine NP] documented in this encounter Plan of Treatment Not on file documented as of this encounter Visit Diagnoses Not on filedocumented in this encounter Care Teams Receiving Room Clerk Relationship Specialty Start Date End Date Timothy Young MD PCP - General Internal Medicine 03/06/16 10/10/22 [facility], Pcp PCP - General Internal Medicine 10/11/22 documented as of this encounter
--- OUTSIDE RECORDS SUMMARY | 2025-08-05 11:12 | XMS_ITS | Encounter Summary ---
Author Organization [facility] Address [address] [place] [address] Care Team Providers Care Cfa Name Role Phone Timothy Young MD Primary Care Provider Ashley ferrell [facility], Pcp Primary Care Provider [facility] Reason for Visit * Reason Onset Date Comments Mychart Rx Refill 05/12/2022 Encounter Details Date Type Department Care Team Description 05/12/2022 Refill Adult Medicine [address] [address] Timothy Young MD Mychart Rx Refill Social History Tobacco Use Types Packs/Day Years [...] AM EDT documented as of this encounter Miscellaneous Notes * Telephone Encounter - Santa Garcia - 05/13/2022 1:19 PM EDT Last rx 04/10 to [facility] using [facility] will you sent # 90? * Telephone Encounter - Coral Robbins M.A. - 05/13/2022 9:40 AM EDT Lab Results Component Value Date CHOL 161 01/17/2022 LDL 71 01/17/2022 HDL 56 01/17/2022 TRIG 174 01/17/2022 SGOT 20 01/17/2022 SGPT 28 01/17/2022 Lab Results Component Value Date NA 139 01/17/2022 K 4.1 01/17/2022 CO2 25 01/17/2022 CL 105 01/17/2022 BUN 23 01/17/2022 CREAT 0.73 01/17/2022 GLU 113 01/17/2022 CA 9.9 01/17/2022 GFR > 60 01/17/2022 Lab Results Component Value Date HGBA1C 6.6 01/17/2022 MALBUR 8.9 01/17/2022 MALBCR < 11.5 01/17/2022 CHOL 161 01/17/2022 LDL 71 01/17/2022 HDL 56 01/17/2022 TRIG 174 01/17/2022 GLU 113 01/17/2022 CREAT 0.73 01/17/2022 Pending appt with pcp 07/18/22 documented in this encounter Plan of Treatment Not on file documented as of this encounter Visit Diagnoses Not on filedocumented in this encounter Care Teams Cfa Relationship Specialty Start Date End Date Timothy Young MD PCP - General Internal Medicine 03/06/16 10/10/22 [facility], Pcp PCP - General Internal Medicine 10/11/22 documented as of this encounter
--- OUTSIDE RECORDS SUMMARY | 2025-08-05 11:12 | XMS_ITS | Encounter Summary ---
Author Organization [facility] Address [address] [place] [address] Care Team Providers Care Manager Investment Banking Name Role Phone Timothy Young MD [facility], Pcp Primary Care Provider Unavailabl e Reason for Visit * Reason Comments E-prescribe Rx Request Encounter Details Date Type Department Care Team Description 04/15/2022 Refill Adult Medicine [address] [address] Timothy Young MD E-prescribe Rx Request Social [...] encounter Miscellaneous Notes * Telephone Encounter - Kimi Floyd M.A. - 04/16/2022 4:28 PM EDT Lab Results Component Value Date CHOL 161 01/17/2022 LDL 71 01/17/2022 HDL 56 01/17/2022 TRIG 174 01/17/2022 SGOT 20 01/17/2022 SGPT 28 01/17/2022 JUANA 01/23/22 NOV 07/18/22 * Telephone Encounter - Miesha Lugo - 04/16/2022 8:57 AM EDT Patient would like script to be: E-PRESCRIBED/FAXED TO PHARMACY WHEN WAS THE PATIENT'S LAST APPOINTMENT IN ADULT MEDICINE? 01/23/22 WHEN WAS THE LAST TIME THE PATIENT SAW THEIR PCP? Same as above Does patient have an upcoming appointment? Yes 07/18/22 (THE MEDICATION REQUESTED IS ON THE MED LIST ABOVE) All of the medications requested were on the CURRENT MEDS list Did you check the Pharmacy information above?: YES Patient wants: 90 -day supply Is this a mail order prescription request ? YES If the refill is from a FAXED refill request what is the RX # listed on the fax? N/A Patients current insurance carrier is: Payor: [employer] / Plan: POS $20 [place] [id number] / Product Type: POS [id number] documented in this encounter Plan of Treatment Not on file documented as of this encounter Visit Diagnoses Not on filedocumented in this encounter Care Teams Manager Investment Banking Relationship Specialty Start Date End Date Timothy Young MD PCP - General Internal Medicine 03/06/16 10/10/22 Wilder Lewis PCP - General Internal Medicine 10/11/22 documented as of this encounter
--- OUTSIDE RECORDS SUMMARY | 2025-08-05 11:12 | XMS_ITS | Encounter Summary ---
Author Organization [facility] Address [address] [place] [address] Care Team Providers Care French Folding Machine Operator Name Role Phone Timothy Young MD Primary Care Provider Ashley ferrell [facility], Pcp Primary Care Provider [facility] Reason for Visit * Reason Onset Date Comments Mychart Rx Refill 02/10/2019 Encounter Details Date Type Department Care Team Description 02/10/2019 Refill Adult Medicine [address] [address] Timothy Young MD Mychart Rx Refill Social [...] Telephone Encounter - Coral Robbins M.A. - 02/10/2019 8:51 AM EDT Lab Results Component Value Date NA 139 02/04/2019 K 4.6 02/04/2019 CO2 26 02/04/2019 CL 103 02/04/2019 BUN 13 02/04/2019 CREAT 0.72 02/04/2019 GLU 147 02/04/2019 CA 9.8 02/04/2019 GFR > 60 02/04/2019 Last ov with pcp 02/08/19 * Telephone Encounter - Coral Robbins M.A. - 02/10/2019 8:51 AM EDTFrom: Nory Zuniga Md To: Timothy Young MD Sent: 02/10/2019 8:24 AM EDT Subject: Medication Renewal Request Original authorizing provider: MD Nory Gagnon Md would like a refill of the following medications: fluticasone (FLONASE) 50 MCG/ACT nasal spray [Timothy Young MD] losartan (COZAAR) 50 MG tablet [Timothy Young MD] Preferred pharmacy: [facility] [place] - [address] Comment: 3 month supply to [facility] Medication renewals requested in this message routed to other providers: ASPIRIN LOW DOSE 81 MG chewable tablet [Janeen Jean APRN] metformin (GLUCOPHAGE) 500 MG tablet [Danny Shore PA-C] documented in this encounter Plan of Treatment Not on file documented as of this encounter Visit Diagnoses Not on filedocumented in this encounter Care Teams French Folding Machine Operator Relationship Specialty Start Date End Date Timothy Young MD PCP - General Internal Medicine 03/06/16 10/10/22 [facility] PCP - General Internal Medicine 10/11/22 documented as of this encounter
--- OUTSIDE RECORDS SUMMARY | 2025-08-05 11:12 | XMS_ITS | Encounter Summary ---
Author Organization [facility] Address [address] [place] [address] Care Team Providers Care Grain Weigher Name Role Phone Michael Hernández MD Primary Care Provider Unavail Breanna Cook MD Primary Care Provider UnavailTimothy Sandhu MD Primary Care Provider Ashley ferrell [facility], [facility], Pcp Primary Care Provider [facility] Encounter Details Date Type Department Care Team Description 10/03/2014 Planning Aide Report Medical Records [address] [place] [address] Abstract, Provider Social History Tobacco Use Types [...] on filedocumented in this encounter Care Teams Grain Weigher Relationship Specialty Start Date End Date Michael Hernández MD PCP - General Internal Medicine 11/08/11 09/25/15 Breanna Nogueira MD PCP - General Internal Medicine 09/26/15 03/05/16 Timothy Young MD PCP - General Internal Medicine 03/06/16 10/10/22 [facility], [facility] PCP - General Internal Medicine 10/11/22 documented as of this encounter
--- OUTSIDE RECORDS SUMMARY | 2025-08-05 11:12 | XMS_ITS | Encounter Summary ---
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) Social History Tobacco Use Types Packs/Day Years Used Date Smoking Tobacco: Never Assessed Sex Assigned at Date Recorded Not on file Job Start Date Occupation Industry Not on file Not on file Not on file documented as of this encounter Plan of Treatment Scheduled Orders Name Type Priority Associated Diagnoses Orde r Schedule COMPREHENSIVE METABOLIC PANEL Lab Routine Cirrhosis Of Liver Without Mention Of Alcohol Ordered: 04/05/2005 LIPID PROFILE Lab Routine Cirrhosis Of Liver Without Mention Of Alcohol Ordered: 04/05/2005 CBC (AUTO DIFF & PLATELET) Lab Routine Cirrhosis Of Liver Without Mention Of Alcohol Ordered: 04/05/2005 ASSAY, PITUITARY GONADOTROPIN Lab Routine Cirrhosis Of Liver Without Mention Of Alcohol Ordered: 04/05/2005 ESTRADIOL, ASSAY Lab Routine Cirrhosis Of Liver Without Mention Of Alcohol Ordered: 04/05/2005 TSH Lab Routine Cirrhosis Of Liver Without Mention Of Alcohol Ordered: 04/05/2005 VENIPUNCTURE Lab Routine Cirrhosis Of Liver Without Mention Of Alcohol Ordered: 04/05/2005 documented as of this encounter Visit Diagnoses Diagnosis Cirrhosis of liver without mention of alcohol- Primary documented in this encounter Care Teams Systems Software Manager Relationship Specialty Start Date End Date Timothy Young MD PCP - General 12/25/00 11/07/11 Michael Hernández MD PCP - General Internal Medicine 11/08/11 09/25/15 Breanna Nogueira MD PCP - General Internal Medicine 09/26/15 03/05/16 Timothy Young MD PCP - General Internal Medicine 03/06/16 10/10/22 [facility] PCP - General Internal Medicine 10/11/22 documented as of this encounter
--- OUTSIDE RECORDS SUMMARY | 2025-08-05 11:12 | XMS_ITS | Clinical Summary ---
Author Organization [facility] Address [address] [place] [address] Care Team Providers Care Heel Shaper Name Role Phone Unavailable Primary Care Provider Unavailabl e Social History Tobacco Use Types Packs/Day Years Used Date Smoking Tobacco: Never Assessed Comments Unknown Sex and Gender Information Value Date Recorded Sex Assigned at Not on file Legal Sex Female 10:05 AM EDT Gender Identity Not on file Sexual Orientation Not on file Plan of Treatment Health Maintenance Due Date Last Done Comments Advance Care Planning 1955 Hepatitis C Virus Screening 1955 DTaP/Tdap/Td Vaccines (1 - Tdap) 1975 Pneumococcal Vaccines 50+ (1 of 1 - PCV) 2006 Zoster (Shingles) Vaccine (1 of 2) 2006 COVID-19 Vaccine ( - 2023-2 5 season) 2024 RSV Vaccine 60 years and old er and Patients (1 - 1-dose 75+ series) 2031 Hepatitis B Vaccines Aged Out No long er eligible based on patient's age to complete this topic
--- OUTSIDE RECORDS SUMMARY | 2025-08-05 11:12 | XMS_ITS | Encounter Summary ---
Author Organization [facility] Address [address] [place] [address] Care Team Providers Care Immigration Judge Name Role Phone Timothy Young MD Primary Care Provider Michael Lyon MD Primary Care Provider Breanna Queen MD Primary Care Provider Timothy Kuo MD Primary Care Provider Ashley Lewis, Pcp Primary Care Provider Unavailabl e Reason for Referral * - Authorized/Booked Specialty Diagnoses / Procedures Referred By Contact Referred To Contact ORTHOPEDICS / Orthopedic Diagnoses Right knee pain Procedures REFERRAL TO ORTHOPEDICS Timothy Young MD [address] [place] [id number] External Orthopedics Referral ID Status Reason Start Date Expiration Date V isits Requested Visits Authorized SEE REVIEW 02/28 Authorized/ Booked 02/27/2010 05/30/2010 1 1 Reason for Visit * Reason Onset Date Comments REFERRAL 02/27/[address] MOYER Encounter Details Date Type Department Care Team Description 02/27/2010 Telephone Adult Medicine [address] [address] Timothy Young MD REFERRAL (REF FOR DR MOYER ) Social History Tobacco Use Types Packs/Day Years Used Date Smoking Tobacco: Never Alcohol Use Standard Drinks/Week Comments Yes 0 (1 standard drink = 0.6 oz pur e alcohol) rare Sex Assigned at Date Recorded Not on file Job Start Date Occupation Industry Not on file Not on file Not on file documented as of this encounter Miscellaneous Notes * Telephone Encounter - Carlyn Rea - 02/27/2010 4:18 PM EDT REVIEW REF SIGN IF OK THANKS documented in this encounter Plan of Treatment Not on file documented as of this encounter Visit Diagnoses Diagnosis Right knee pain- Primary Pain in joint, lower leg documented in this encounter Care Teams Immigration Judge Relationship Specialty Start Date End Date Timothy Young MD PCP - General 12/25/00 11/07/11 Michael Hernández MD PCP - General Internal Medicine 11/08/11 09/25/15 Breanna Nogueira MD PCP - General Internal Medicine 09/26/15 03/05/16 Timothy Young MD PCP - General Internal Medicine 03/06/16 10/10/22 [facility], Pcp PCP - General Internal Medicine 10/11/22 documented as of this encounter
--- OUTSIDE RECORDS SUMMARY | 2025-08-05 11:12 | XMS_ITS | Encounter Summary ---
Author Organization [facility] Address [address] [place] [address] Care Team Providers Care Supervisor Dumping Name Role Phone Timothy Young MD Primary Care Provider Michael Lyon MD Primary Care Provider Unavail able Breanna Nogueira MD Primary Care Provider Unavaila [facility] Timothy Young MD Primary Care Provider Ashley ferrell [facility], Pcp Primary Care Provider Unavailabl e Encounter Details Date Type Department Care Team Description 12/17/2010 Eye Post Production Assistant Report Medical Records [address] [place] [id number] [place] Social History Tobacco Use Types Packs/Day Years [...] on filedocumented in this encounter Care Teams Supervisor Dumping Relationship Specialty Start Date End Date Timothy Young MD PCP - General 12/25/00 11/07/11 Michael Hernández MD PCP - General Internal Medicine 11/08/11 09/25/15 Breanna Nogueira MD PCP - General Internal Medicine 09/26/15 03/05/16 Timothy Young MD PCP - General Internal Medicine 03/06/16 10/10/22 [facility], Pcp PCP - General Internal Medicine 10/11/22 documented as of this encounter
--- OUTSIDE RECORDS SUMMARY | 2025-08-05 11:12 | XMS_ITS | Encounter Summary ---
Author Organization [facility] Address [address] [place] [address] Care Team Providers Care Jigmaker Name Role Phone Timothy Young MD Primary Care Provider Ashley ferrell [facility], Pcp Primary Care Provider Unavailabl e Reason for Visit * Reason Comments E-prescribe Rx Request Encounter Details Date Type Department Care Team Description 01/05/2022 Refill Adult Medicine [address] [address] Timothy Young MD E-prescribe Rx Request Social [...] encounter Miscellaneous Notes * Telephone Encounter - Latoya Marsh M.A. - 01/08/2022 1:14 PM EST Last office visit 09/13/21 Next office visit 01/23/22 Lab Results Component Value Date NA 139 05/19/2020 K 4.1 05/19/2020 CO2 29 05/19/2020 CL 104 05/19/2020 BUN 16 05/19/2020 CREAT 0.71 05/19/2020 GLU 101 05/19/2020 CA 10.0 05/19/2020 GFR > 60 05/19/2020 * Telephone Encounter - Sarahy Soriano - 01/08/2022 12:38 PM EST MAIL ORDER REFILL REQUEST When was the patients last visit with PCP?: 09/22/2020 When was the patients last visit in Medicine: 09/13/21 Does the patient have a future appointment? Yes 01/23/22 Is the doctor here today?: YES Is the med requested on the list?:Yes What mail order pharmacy does patient have?: [facility] Let the patient know that if their pharmacy is participating we will automatically route this mail order refill to them via their mail order pharmacy. Is the following the patients current home address: [address] [place] [id number] yes If their mail order pharmacy is NOT a participating pharmacy we can:If this refill request was recieved via fax or e-prescribe the request will be faxed back to the pharmacy Is this the patients current medical insurance carrier? Payor: [employer] / Plan: POS $20 [place] [id number]/ Product Type: POS [id number] YES documented in this encounter Plan of Treatment Not on file documented as of this encounter Visit Diagnoses Not on filedocumented in this encounter Care Teams Jigmaker Relationship Specialty Start Date End Date Timothy Young MD PCP - General Internal Medicine 03/06/16 10/10/22 [facility], Pcp PCP - General Internal Medicine 10/11/22 documented as of this encounter
--- OUTSIDE RECORDS SUMMARY | 2025-08-05 11:12 | XMS_ITS ---
Author Name [facility] Organization Unknown Encounters Encounter Type Encounter Reason Primary Diagnosis Location Date Ambulatory ROUTINE Unilateral prima ry osteoarthritis, right hip [facility] [place] 09/15/2023 Care Team Organization Name Specialty Phone Email Start Date End Da te [facility] [place] 09/15/2023 09/15/2023 [facility] [place] 08/13/2023 [facility] Timothy Young Primary Care 10/01/2022 07/12/2024
== END 2025-08-05 10:46 | disposition home or self-care (01) ==
PROVIDERS: PCP Internal Medicine; Visit Provider Hospitalist
DX: G47.33 Obstructive sleep apnea (adult) (pediatric) (principal); R01.1 Cardiac murmur, unspecified; J84.10 Pulmonary fibrosis, unspecified; I77.819 Aortic ectasia, unspecified site; J47.9 Bronchiectasis, uncomplicated
CPT/HCPCS: 99215; G2211

== ENCOUNTER → 2025-08-05 09:54 | Outpatient (BNVA) | payer MEDICARE, SELFPAY | PROVIDERS: PCP Internal Medicine; Visit Provider Hospitalist | DX: G47.33 Obstructive sleep apnea (adult) (pediatric) (principal); R01.1 Cardiac murmur, unspecified; J84.10 Pulmonary fibrosis, unspecified; I77.819 Aortic ectasia, unspecified site; J47.9 Bronchiectasis, uncomplicated; R91.8 Other nonspecific abnormal finding of lung field | CPT/HCPCS: 99212 ==

== ENCOUNTER 2025-10-18 13:41 | Outpatient (REF) | payer MEDICARE, SELFPAY ==
--- NOTE | 2025-10-18 14:20 | PFT_ITS ---
Flows: FEV1: 115 % of predicted at 2.43 L FVC: 109 % of predicted at 3.01 L FEV1/FVC: 81 % Bronchodilator response: Absent Volumes: Total lung capacity: 103 % of predicted at 4.95 L Residual volume: 99 % of predicted at 1.85 L Slow vital capacity: 106 % of predicted at 3.10 L Expiratory reserve volume: 42 % of predicted at 0.29 L Diffusion capacity: Normal Impression: No obstructive or restrictive ventilatory defect. No bronchodilator response. Decreased expiratory reserve volume suggests extrathoracic restriction likely secondary to abdominal obesity. MTDD
[2025-10-18 15:03] VITALS: PULSE 85; O2SAT 96
== END 2025-10-18 13:42 | disposition home or self-care (01) ==
LOC: HO.RESP 13:41
PROVIDERS: PCP Internal Medicine; Visit Provider Hospitalist
DX: J84.10 Pulmonary fibrosis, unspecified (principal); J47.9 Bronchiectasis, uncomplicated
CPT/HCPCS: 94060; 94640; 94727; 94729

== ENCOUNTER → 2025-10-18 14:20 | Outpatient (BNV) | payer MEDICARE, SELFPAY | PROVIDERS: PCP Internal Medicine; Visit Provider Internal Medicine Pulmonary Disease | DX: J84.10 Pulmonary fibrosis, unspecified (principal) | CPT/HCPCS: 94060; 94727; 94729 ==